=== PATIENT | male | born 1970 | race Caucasian/White ===

== ENCOUNTER 2016-11-19 07:44 | Observation (INO) | payer BC, OTHER ==
[2016-11-19] MEDS ORDERED: Clindamycin 900 MG IVPREMIX(* 900 MG/50 ML SDV IV ONE (08:46)
--- NOTE | 2016-11-19 09:08 | RAD ---
Indication: Chest pain. Previous myocardial infarction. Comparison: February 27, 2014 Technique: Upright AP 0850 hours Report: Clear lungs and pleural spaces. Negative for pneumothorax. RIGHT ventricular level pacemaker lead. Cardiomegaly. Unremarkable central pulmonary vasculature and mediastinal contours. IMPRESSION: Cardiomegaly without evidence for pulmonary edema. No evidence for acute intrathoracic disease.
[2016-11-19 09:27] LABS: Hematocrit 47 % (42-52); Hemoglobin 15.9 g/dl (14.0-18.0); Mean Corpuscular HGB Conc 34 g/dl (31-36); Mean Corpuscular Hemoglobin 29 pg (27-31); Mean Corpuscular Volume 86 fL (80-94); Mean Platelet Volume 8 um3 (7.4-10.4); Red Blood Count 5.48 10^6/ul (4.0-5.4); Red Cell Distribution Width 13 % (10.5-15); White Blood Count 9.8 10^3/ul (3.5-10.8)
--- NOTE | 2016-11-19 09:29 | RAD ---
HISTORY: Headache, facial erythema and swelling COMPARISONS: None TECHNIQUE: Multiple contiguous axial CT scans were obtained of the face without intravenous contrast, with coronal and sagittal multiplanar reformations. FINDINGS: BONES: There is no displaced fracture or dislocation. The orbital rim is intact. The zygomatic arch is intact. The pterygoid plates are intact. ORBITS: The globes are round. The optic nerves are symmetric. The extraocular musculature is normal. There is no post septal or intraconal inflammatory change. There is no retrobulbar hematoma. PARANASAL SINUSES: The paranasal sinuses are clear. BRAIN AND SOFT TISSUE: Unremarkable. OTHER: Tonsilloliths are noted. There is a 1 cm soft tissue density of the right parotid inferiorly, within the superficial portion of the parotid. IMPRESSION: 1 CM SOFT TISSUE DENSITY OF THE RIGHT PAROTID GLAND. THE DIFFERENTIAL INCLUDES PROMINENT INTRAPAROTID LYMPH NODE VERSUS PRIMARY PAROTID NEOPLASM. OTHERWISE UNREMARKABLE NONCONTRAST CT OF THE FACE
[2016-11-19 09:44] LABS: Albumin 4.3 g/dL (3.2-5.2); C Reactive Protein 1.18 mg/L (< 5.00); Calcium 9.7 mg/dL (8.6-10.3); EGFR Non-African American 80.1 (>60); Globulin 2.7 g/dL (2-4); Total Bilirubin 0.8 mg/dL (0.2-1.0)
[2016-11-19 09:53] LABS: TSH (Thyroid Stimulating Horm) 0.44 mcIU/mL (0.34-5.60)
--- NOTE | 2016-11-19 09:54 | RAD ---
Indication: Facial swelling. CT of the brain was performed without IV contrast. Ventricular structures are midline. No midline shift is noted. The extra-axial spaces are unremarkable. There is no evidence of intracranial mass or hemorrhage. No other high or low density lesions are identified. Mastoid air cells and paranasal sinuses are otherwise unremarkable. When compared to previous exam of October 16, 2013 no significant change is noted. IMPRESSION: No intracranial mass or hemorrhage is noted.
[2016-11-19 10:22] LABS: Urine Bilirubin Negative (Negative); Urine Glucose Negative (Negative); Urine Nitrite Negative (Negative)
[2016-11-19] MEDS ORDERED: Acetaminophen TAB* 325 MG PO PRN (13:23)
--- NOTE | 2016-11-19 16:23 | HP ---
HISTORY AND PHYSICAL: DATE OF ADMISSION: 11/19/16 PRIMARY CARE PROVIDER: Dr. Recinos. ATTENDING PHYSICIAN WHILE IN THE HOSPITAL: Dr. Yomi Gonzalez* (report dictated by Sebastian Crow NP). CHIEF COMPLAINT: 1. Nasal erythema. 2. Nasal pain. HISTORY OF PRESENT ILLNESS: Mr. Hope is a 46-year-old male patient. He has a history of coronary artery disease, hyperlipidemia, history of MT, prolonged QT, status post ICD placement, and a history of GERD. He comes into the ER originally for the complaint that he was having redness, erythema, swelling, pain of his nose. It started out a couple of days ago. He is unsure if he had any injury or abrasion. He does have an abrasion now to the nose and he has had increasing swelling, erythema, and pain. He says the erythema is getting better, but the swelling has been getting worse. He has not had any fevers or drainage from this area on his nasal bridge, but he was concerned because of the swelling and the fact that the pain was not getting any better and so, he came into the ER. The patient says he has also been having headache too at times. It has been hurting in the back of his eyes, but he denies having any pain with eye movement and he denies any erythema or redness to the eyes. He denies having any discharge; however, while talking to the patient, it was discovered that he has been having some chest discomfort off and on. He thinks it is gas pain. It gets worse when he lies down. He says that he has been belching a lot today. He had that discomfort today underneath his left side, his left rib cage. No associated shortness of breath or diaphoresis usually, but today he did have some shortness of breath. The pain did not radiate anywhere and it lasted a couple seconds and it went away. This was relayed to the ER physician and there was concern for this, so we were asked to evaluate for chest pain. He says he does not get any exertional chest pain and he says it happens throughout the day. The frequency or the duration has not been increasing and he says it has been the same ever since his heart attack for the last 3 years. PAST MEDICAL HISTORY: Significant for: 1. Coronary artery disease. 2. Hyperlipidemia. 3. GERD. 4. MT. 5. Prolonged QT. PAST SURGICAL HISTORY: 1. The patient has had a cardiac catheterization. 2. ICD placement. HOME MEDICATIONS: Include: 1. Magnesium 400 mg daily. 2. Plavix 75 mg daily. 3. Aspirin 81 mg daily. 4. Coreg 9.375 mg twice a day. 5. Lipitor 40 mg daily. 6. [place] fish oil 1200 mg daily. 7. Protonix 40 mg daily. 8. Coenzyme Q10 at 100 mg p.o. twice a day. ALLERGIES TO MEDICATIONS: Include no known drug allergies. FAMILY HISTORY: Mother is diabetic. Father has a history of coronary artery disease and rheumatoid arthritis. SOCIAL HISTORY: He is a former smoker. He does not drink alcohol; if he does, it is very rarely. He is . Surrogate decision maker is his . REVIEW OF SYSTEMS: There is no documented fever. Denied having any significant weight change. There was no double vision. There is no ear discharge. There is no rhinorrhea. There is no sore throat. No thyroid enlargement. There was chest discomfort per my HPI. No orthopnea. No nocturnal dyspnea. There is no abdominal pain. No nausea. No vomiting. No dysuria. No frequency. No loss of consciousness. No pruritus and no skin ulcerations. Review of 14 systems completed, all others negative. PHYSICAL EXAMINATION GENERAL: At this time, Mr. Hope is a 46-year-old male patient. He appears to be well nourished, well developed. He does not appear to be in any acute distress. VITAL SIGNS: Blood pressure 124/85 with a pulse of 66, respirations 18, O2 sat 97%, and temperature of 96.9. HEENT: Head atraumatic. Eyes: Sclerae are anicteric and not pale. Throat: Oral mucosa appears to be moist. No oropharyngeal erythema. NECK: Supple. LUNGS: Clear to auscultation bilaterally. No wheezes, rales, or rhonchi. HEART: Sounds S1, S2. Regular rate and rhythm. No murmurs, rubs, or gallops. ABDOMEN: Soft, flat, and nontender. Bowel sounds present. EXTREMITIES: Pulses 2+ throughout. Able to move all 4 extremities with 5/5 strength. NEUROLOGIC: The patient is awake, he is alert, and he is oriented x3. No gross focal deficits. SKIN: Intact with the exception he has got an area of erythema and swelling noted to the bridge of his nose. There is an abrasion on the top of the nose noted. No discharge was noted at this point. Otherwise, skin is intact. LABORATORY DATA AND DIAGNOSTIC STUDIES: Today revealed WBC of 9.8, RBC of 5.48 , hemoglobin 15.9, hematocrit of 47, platelet count of 225. INR was 0.86. PTT of 29.4. D-dimer less than 200. The sodium was 137, potassium of 4.0, chloride of 103, bicarb 28, BUN 13, creatinine of 1, glucose 104, lactic 1.8, calcium 9.7. Total bili 2.0, AST 28, ALT 17, alk phos 29, CK 145, CK-MB 2.5. Troponin 0. Albumin 4.3. Urine was obtained, it was negative. He had a chest x-ray obtained today as well, which revealed cardiomegaly without evidence for pulmonary edema. No evidence for acute intrathoracic disease. He had a maxillofacial CT scan today as well, which showed impression: 1-cm soft tissue density of the right parotid gland. Differential includes prominent intraparotid lymph node versus primary parotid neoplasm. Otherwise unremarkable noncontrast CT. He had a brain CT as well, which showed no intracranial mass or hemorrhage. He had an EKG obtained today as well, which showed heart rate 55. He had no ST elevations or T-wave inversions with sinus bradycardia. Old medical records were reviewed. ASSESSMENT AND PLAN: Mr. Hope is a 46-year-old male patient coming into the ER today with complaints of nasal swelling and nasal erythema. On evaluation, there was concern because the patient was complaining of having chest pain. Hospitalist service was asked to evaluate in consult. He will be admitted under observation status for: 1. Chest pain: At this point, we will go ahead and do a stress test and place the patient on telemetry. Check troponins. He is on aspirin, Plavix, statin, beta rachel. We will continue. He is chest pain free currently. We will get the stress test and we will continue to follow. Certainly, he could have acute coronary syndrome, which could be causing the chest discomfort, but it could also be gastroesophageal reflux disease as well. We will continue to follow. 2. Nasal cellulitis: At this point, I will go ahead and continue clindamycin, which was started in the ED. 3. Gastroesophageal reflux disease: Continue his PPI therapy. 4. Right parotid gland mass versus lymph node prominence: At this point, the patient will need followup with ENT. We will place a call to them to see if we can get this scheduled. I do not think there is nothing that needs to be done inpatient, this will probably be worked up in the outpatient setting. I did inform the patient and the patient's primary could also follow this. 5. Prolonged QT: We will avoid any medications that prolong his QT. 6. DVT prophylaxis: He will be placed on heparin subcu. 7. Code status: Full code. 8. Fluids, electrolytes, and nutrition: He can have a heart healthy diet. TIME SPENT: Time spent on the admission was 60 minutes; greater than half the time was spent [id number] with the patient obtaining my history and physical, other half the time spent going over the plan of care with the patient and implementing plan of care. I did discuss the plan of care with my attending, Dr. Gonzalez; he is in agreement. SEBASTIAN CROW NP CC: Dr. Recinos* [id number]/[facility] #: [id number] MELANIE
[2016-11-19] MEDS ORDERED: CMCS: Pantoprazole TAB (NF) 40 MG TAB PO SCH (17:00)
[2016-11-19] MEDS: Heparin VIAL(*) 5000 UNITS/ML VIAL (FIVE THOUSAND) SUBCUT SCH ×2 (17:10→21:50)
[2016-11-19] MEDS: Clindamycin 600 MG IVPREMIX(* 600 MG/50 ML SDV IV SCH (19:56)
[2016-11-19] MEDS: Carvedilol TAB* 3.125 MG PO SCH (20:12)
[2016-11-19] MEDS ORDERED: Atorvastatin* 40 MG TAB PO SCH (21:00)
[2016-11-20] MEDS: Clindamycin 600 MG IVPREMIX(* 600 MG/50 ML SDV IV SCH ×2 (03:40→13:10)
[2016-11-20 05:40] LABS: Hematocrit 46 % (42-52); Hemoglobin 15.6 g/dl (14.0-18.0); Mean Corpuscular HGB Conc 34 g/dl (31-36); Mean Corpuscular Hemoglobin 29 pg (27-31); Mean Corpuscular Volume 87 fL (80-94); Mean Platelet Volume 8 um3 (7.4-10.4); Red Blood Count 5.35 10^6/ul (4.0-5.4); Red Cell Distribution Width 14 % (10.5-15); White Blood Count 8.8 10^3/ul (3.5-10.8)
[2016-11-20 05:58] LABS: BUN/Creatinine Ratio 16.7 (8-20); Calcium 9.3 mg/dL (8.6-10.3); EGFR African American 100.7 (>60); EGFR Non-African American 78.3 (>60)
[2016-11-20] MEDS: Heparin VIAL(*) 5000 UNITS/ML VIAL (FIVE THOUSAND) SUBCUT SCH ×2 (06:29→13:48)
[2016-11-20] MEDS ORDERED: Aspirin EC Low Dose* 81 MG TAB.EC PO SCH (09:00)
[2016-11-20] MEDS ORDERED: Magnesium Oxide TAB* 400 MG PO SCH (09:00)
[2016-11-20] MEDS ORDERED: Clopidogrel TAB* 75 MG PO SCH (09:00)
[2016-11-20] MEDS ORDERED: Aspirin Low Dose CHEW TAB* 81 MG PO SCH ×2 (09:00)
--- NOTE | 2016-11-20 09:39 | PN ---
Subjective Date of Service: 11/20/16 Interval History: Patient seen and examined at bedside. Pt states that the swelling to his nose has increased overnight, but the redness has decreased. Denies fever, chills, shortness of breath, chest discomfort, N/V/D, difficulty breathing through his nose. Pt is anxious to leave today. Pt states that he has been having intermittent chest discomfort since his PR 3 years ago, he finds that it typically occurs when he is stressed. Pt reports that the redness on his nose started as a scratch a few days ago and has continued to progress. Tele: Sinus rhythm, rate 60-70's. Occasional PVCs and richard in high 40's. Family History: Unchanged from Admission Social History: Unchanged from Admission Past Medical History: Unchanged from Admission Objective Active Medications: Acetaminophen (Tylenol Tab*) 650 mg PO Q4H PRN Reason: FEVER/PAIN Aspirin (Aspirin Low Dose Tab*) 81 mg PO DAILY JENY Atorvastatin Calcium (Lipitor*) 40 mg PO BEDTIME JENY Carvedilol (Coreg Tab*) 9.375 mg PO BID JENY Clopidogrel Bisulfate (Plavix Tab*) 75 mg PO DAILY JENY Heparin Sodium (Porcine) (Heparin Vial(*)) 5,000 units SUBCUT Q8HR JENY Clindamycin HCl/Dextrose (Cleocin 600 Mg Ivpremix(*) Sdv) 600 mg in 50 mls @ 100 mls/hr IV Q8H JENY Magnesium Oxide (Magox 400 Tab*) 400 mg PO DAILY EJNY Pantoprazole Sodium (Protonix Tab (Nf)) 40 mg PO DAILY@1700 [facility] Vital Signs 11/19/16 11/19/16 11/19/16 12:43 13:00 13:48 Temperature Pulse Rate 72 65 63 Respiratory 14 11 11 Rate Blood Pressure 138/90 124/85 128/89 (mmHg) O2 Sat by Pulse 96 97 96 Oximetry 11/19/16 11/19/16 11/19/16 14:00 14:33 14:53 Temperature 97.7 F 97.7 F Pulse Rate 63 81 81 Respiratory 15 18 18 Rate Blood Pressure 127/83 152/96 152/96 (mmHg) O2 Sat by Pulse 95 95 95 Oximetry 11/19/16 11/19/16 11/19/16 15:58 17:22 19:51 Temperature 97.4 F 98.6 F Pulse Rate 67 71 Respiratory 14 Rate Blood Pressure 133/81 130/86 (mmHg) O2 Sat by Pulse 98 97 Oximetry 11/20/16 11/20/16 11/20/16 00:29 04:38 07:57 Temperature 97.3 F 97.7 F 98.0 F Pulse Rate 65 65 60 Respiratory 16 16 16 Rate Blood Pressure 101/70 110/74 131/85 (mmHg) O2 Sat by Pulse 96 95 96 Oximetry Oxygen Devices in Use Now: None Eyes: No Scleral Icterus, PERRLA Ears/Nose/Mouth/Throat: - - Erythema and swelling to the bridge of the nose Neck: NL Appearance and Movements; NL JVP, Trachea Midline Respiratory: Symmetrical Chest Expansion and Respiratory Effort, Clear to Auscultation Cardiovascular: NL Sounds; No Murmurs; No JVD, RRR Abdominal: NL Sounds; No Tenderness; No Distention Extremities: No Edema Skin: - Neurological: Alert and Oriented x 3, NL Muscle Strength and Tone Lines/Tubes/Other Access: Clean, Dry and Intact Peripheral IV - site benign Nutrition: Taking PO's Result Diagrams: 11/20/16 05:20 11/20/16 05:20 Assess/Plan/Problems-Billing Assessment: Mr. Hope is a 46 yo male with PMH significant for CAD, HLD, HTN who presented to the emergency room with complaints of nasal swelling and erythema, and intermittent chest pain. He was admitted with nasal cellulitis and chest pain, r/o ACS. - Patient Problems (1) Chest pain Code(s): R07.9 - CHEST PAIN, UNSPECIFIED SNOMED Code(s): 98052620 Comment: - Denies chest pain since admission - No events noted on Tele - Stress test pending - Trops 0.00 x3 (2) Cellulitis of external nose Code(s): J34.0 - ABSCESS, FURUNCLE AND CARBUNCLE OF NOSE SNOMED Code(s): 06410078 Comment: - Pt reports improvement in erythma, but increased swelling - Continue ABX, will change to PO for discharge (3) GERD (gastroesophageal reflux disease) Code(s): K21.9 - GASTRO-ESOPHAGEAL REFLUX DISEASE WITHOUT ESOPHAGITIS SNOMED Code(s): 674621324 Comment: - Continue PPI (4) Enlarged parotid gland Code(s): K11.1 - HYPERTROPHY OF SALIVARY GLAND SNOMED Code(s): 63381127 Comment: - Right parotid gland mass versus lymph node prominence - Follow-up with ENT outpatient for a possible FNA (5) Prolonged QT interval Code(s): R94.31 - ABNORMAL ELECTROCARDIOGRAM [ECG] [EKG] SNOMED Code(s): 361880134 Comment: - Avoid medications that prolong QT (6) Elevated hemoglobin A1c Code(s): R73.09 - OTHER ABNORMAL GLUCOSE SNOMED Code(s): 578164517 Comment: - Pt encouraged to monitor sugar and carb intake - Follow-up with PCP (7) DVT prophylaxis Code(s): FFK1886 - SNOMED Code(s): 332327418 Comment: - Continue SQ heparin (8) Full code status Code(s): Z78.9 - OTHER SPECIFIED HEALTH STATUS SNOMED Code(s): 417152160 Status and Disposition: OBV. Discharge to home when medically stable, possibly later today.
[2016-11-20 12:45] VITALS: BP 124/84
[2016-11-20] MEDS: Carvedilol TAB* 3.125 MG PO SCH (12:47)
--- NOTE | 2016-11-20 12:48 | RAD ---
Edited for charges. Indication: Coronary artery disease, chest pain. Myocardial perfusion scan was performed utilizing 1 day protocol. Rest myocardial perfusion was performed after intravenous injection of 10.5 mCi of technetium 99 and tetrofosmin. Treadmill stress study was performed and the maximum heart rate achieved was 86% of the maximum predicted value. 25.7 mCi of technetium 99 and tetrofosmin was injected for the stress portion of the study. There is a fixed defect in the apex. No definite evidence of reversible change is noted surrounding the fixed defect. The ejection fraction at stress is 58%. Evaluation of wall motion demonstrates no evidence of focal wall motion. IMPRESSION: Moderate-sized fixed defect in the apex. No definite reversible change is noted. ASSESSMENT: Intermediate risk Based on imaging criteria from ACC/AHA 2002 Guideline Update for the Management of Patients With Chronic Stable Angina Table 23. Noninvasive Risk Stratification. MTDD
--- NOTE | 2016-11-21 12:23 | DS ---
DISCHARGE SUMMARY: DATE OF ADMISSION: 11/19/16 DATE OF DISCHARGE: 11/20/16 ATTENDING PHYSICIAN: Bre Castaneda MD *(dictated by Anna Crooks NP). PRIMARY CARE PROVIDER: Mau Recinos MD. PRIMARY DIAGNOSES: 1. Nasal cellulitis. 2. Atypical chest pain. 3. Right parotid gland mass, first lymph node prominence. SECONDARY DIAGNOSES: 1. History of coronary artery disease. 2. Prolonged QT. 3. Gastroesophageal reflux disease. 4. Hyperlipidemia. 5. Status post ventricular fibrillation arrest with status post ICD placement. STUDIES WHILE IN THE HOSPITAL: 1. Brain CT on 11/19/16. Radiologist's impression: No intracranial mass or hemorrhages noted. 2. Maxillofacial CT from 11/19/16. Radiologist's impression: A 1 cm soft tissue density of the right parotid gland. The differential includes prominent intraparotid lymph node versus primary parotid neoplasm. Otherwise, unremarkable non-contrast CT of the face. 3. Chest x-ray on 11/19/16. Radiologist's impression: Cardiomegaly without evidence for pulmonary edema. No evidence for acute intrathoracic disease. 4. Cardiac nuclear stress test from today. Stand In's observation, chest pain none. Resting ECG, abnormal ST changes none. Hypertensive BP response. Conclusion: Nondiagnostic near maximal stress test. Nuclear portion to be reported separately by Radiology. Radiologist's impression: Moderate size fixed defect in the apex. No definitive reversible change is noted. Assessment : Intermediate risk. DISCHARGE MEDICATIONS: New home medication: 1. Keflex 500 mg oral 4 times daily for 6 more days. Continued home medications: 1. Plavix 75 mg oral daily. 2. Carvedilol 9.375 mg oral twice daily. 3. Magnesium 400 mg oral daily. 4. Fish oil 1200 mg oral daily. 5. Co-Q10 at 100 mg oral twice daily. 6. Protonix 40 mg oral daily. 7. Aspirin 81 mg oral daily. 8. Atorvastatin 40 mg oral every evening. HISTORY OF PRESENT ILLNESS/HOSPITAL COURSE: Mr. Hope is a 46-year-old male with past medical history significant for coronary artery disease, status post myocardial infarction, hyperlipidemia, GERD, prolonged QT, who presents to the emergency room with complaints of nasal swelling and nasal erythema. The patient reports that he started with a scratch-like area on the bridge of his nose that then progressed to increased swelling and redness. The patient denied any injury to the nose. The patient denies any fever or drainage from the area on his nose. The patient was also having headaches and some pain in the back of his eyes, but denied pain with movement of his eyes or redness involving his eyes. The patient also reported intermittent chest discomfort for quite sometime in the emergency room. The patient reported that he felt that it was gas pain, it was worse when he lied down and he had been belching a lot. The patient reported discomfort under the left side of his ribcage. He had no associated shortness of breath or diaphoresis, but did report having shortness of breath earlier in the day. While in the emergency room, the patient had a chest x-ray showing no acute findings. He also had a maxillofacial CT scan showing a 1 cm soft tissue density of the right parotid gland. The patient had labs that were significant for troponin of 0.00, hemoglobin of 7.2, a brain CT showing no acute findings. The patient also had an EKG showing sinus bradycardia with a rate of 55. No ST elevation or T-wave inversions. Based on the patient's presentation and complaints of chest discomfort, the hospitalists were asked to evaluate the patient for possible admission. While in the hospital, the patient was initially treated with IV clindamycin for his nasal cellulitis. The patient underwent a nuclear exercise stress test that was an intermediate risk. Cardiology on-call felt that this was a small area of fixed ischemia and felt that the patient was able to be discharged to home. The patient has remained afebrile. The patient was anxious to go home. It is to note that the patient was found to have an elevated hemoglobin A1c of 7.2. The patient was encouraged to have an appointment with [facility] regarding treatment of his diabetes, the patient declined. The patient was not interested in starting on any medications for his elevated hemoglobin A1c. The patient was encouraged to make a self-referral and given the phone number for [facility] if he changed his mind and would like a referral. The patient's troponins remained flat at 0.00. The patient's LDL was slightly elevated at 73. The patient declined having his statin increased at this time. The patient also has borderline elevated triglycerides of 178. Over the course of the day, the patient's erythema and swelling started to improve to his nasal bridge. The patient remained chest pain free and had no events noted on telemetry. Mr. Hope is stable for discharge to home today. Vital signs are as follows: Temperature 97.8, heart rate 71, respiratory rate 16, O2 sat 99% on room air, blood pressure 124/84. DISCHARGE PLAN: Mr. Hope will be discharged to home. ACTIVITY: As tolerated. DIET: He has been encouraged to eat a heart healthy consistent carbohydrate diet. The patient has been provided with some information about meal planning with diabetic exchanges. The patient had been encouraged to have an appointment with [facility] for [employer] [facility] and he has declined. As far as the patient's nasal cellulitis, he has been discharged with 6-day course of Keflex. The patient was also incidentally found to have a right parotid gland with increased density. The patient has been set up with a followup appointment with Dr. Aidan Purdy on November 22 at 9:30 a.m. The patient should see his primary care provider, Dr. Mau Recinos, and he has an appointment on November 22 at 1:20 p.m. 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 Alin Braga, as needed. Again it has been discussed with the patient about his elevated hemoglobin A1c, elevated triglycerides and LDL. At this time, the patient declines any changes in his medications and I would like to discuss this all with his primary care provider, Dr. Recinos. The patient has been asked to return to the emergency room for any chest pain or shortness of breath or worsening of the swelling of his nasal bridge. This is a summarized report of a complex medical history and hospital stay. For further details, please see the entire medical record. TIME SPENT: Time for this discharge was 50 minutes, 25 minutes was spent face- to- face with the patient and discussing discharge plans and instructions. CONDITION ON DISCHARGE: Stable. Reviewed by DUGLAS JEFFERS 11/21/16 [id number] CC: Alin Braga MD; Aidan Purdy MD; Mau Recinos MD* [id number]/[facility] #: [id number] MTDD
--- NOTE | 2016-11-29 12:16 | ED ---
Mauro Alford Alok, scribed for Gene Altamirano MD on 11/19/16 at 0850 . Skin Complaint - HPI Summary HPI Summary: 46 y/o male presents to the ED with c/o facial swelling and erythema concentrated on the bridge of his nose. Facial swelling which began as a small bump 4 days ago has worsened significantly since, prompting visit to the ED. 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 Since onset, Pt has taken Benadryl which alleviated some blistering of the facial bump but did not lessen the swelling. Accompanying symptoms include a BLUNT for the past 3-4 days as well as dizziness, eye/neck pressure, and fatigue. Pt also notes sharp CP on and off for the past 3 days, but is similar to baseline since last cardiac surgery. Pt also notes having experienced ear pain about 2 or 3 weeks ago. Pt denies any fever, chills, or tenderness to palpation around his face. Pt provides a list of drug allergies brought with him. Clindamycin is not on this list. - History of Current Complaint Chief Complaint: EDFacialInjury Time Seen by Provider: 11/19/16 08:20 Stated Complaint: NOSE COMPLAINT Hx Obtained From: Patient, Family/Regulatory Consultant - Onset/Duration: Started Days Ago, Atraumatic, Still Present Skin Exposure Onset/Duration: Days Ago, Worse Since: - 4 days ago Timing: Constant, Lasting Days Onset Severity: Moderate Current Severity: Moderate Pain Intensity: 2 Pain Scale Used: 0-10 Numeric Skin Location: Discrete, Nose - Bridge of nose Character: Swelling, Redness Aggravating Symptom(s): Nothing Alleviating Symptom(s): OTC Meds - Benadryl Associated Signs & Symptoms: Chest Pain, Rash Related History: Possible Reaction to: Environmental Exposure - 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 - Allergy/Home Medications Allergies/Adverse Reactions: Allergies Allergy/AdvReac Type Severity Reaction Status Date / Time No Known Allergies Allergy Verified 10/12/13 17:20 PMH/Surg Hx/FS Hx/Imm Hx Cardiovascular History: Reports: Hx Coronary Artery Disease, Hx Pacemaker/ICD GI History: Reports: Hx Gastroesophageal Reflux Disease Infectious Disease History: No Infectious Disease History: Denies: Traveled Outside the [place] in Last 30 Days - Family History Known Family History: Positive: Cardiac Disease - Father, Diabetes - Mother - Social History Occupation: Employed Full-time Lives: With Family - Alcohol Use: Rare Substance Use Type: Reports: Marijuana Substance Use Comment - Amount & Last Used: 11/19/2016 Smoking Status (MU): Former Smoker Type: Cigarettes Have You Smoked in the Last Year: Yes Review of Systems Negative: Fever, Chills Positive: Ear Ache Positive: Chest Pain Positive: Rash Neurological: Other - Dizziness, Fatigue Positive: Headache All Other Systems Reviewed And Are Negative: Yes Physical Exam - Summary Physical Exam Summary: Appearance: Mildly ill-appearing, no pain distress Skin: Erythema bridge of nose. Edema bridge of nose. Edema below right eye. Head/Face: Normal head/face Eyes: EOMI, PERRL ENT: Normal ENT inspection. Ears normal Neck: Supple, nontender Resp: CTA, breath sounds present Cardio: RRR Abd: Nontender, Soft Bowel: Present Musculo: Normal, Strength, ROM intact Neuro: Normal, sensory/motor intact AxO x3 Psych: Affect/ mood appropriate Triage Information Reviewed: Yes Vital Signs On Initial Exam: Initial Vitals Temp Pulse Resp BP Pulse Ox 96.9 F 73 20 134/101 96 11/19/16 07:45 11/19/16 07:45 11/19/16 07:45 11/19/16 07:45 11/19/16 07:45 Vital Signs Reviewed: Yes - Henny Coma Scale Coma Scale Total: 15 Diagnostics - Vital Signs Vital Signs Temp Pulse Resp BP Pulse Ox 11/19/16 08:22 60 97 11/19/16 07:45 96.9 F 73 20 134/101 96 - Laboratory Lab Results: Lab Results 11/19/16 11/19/16 11/19/16 Range/Units 09:00 09:00 09:00 WBC 9.8 (3.5-10.8) 10^3/ul RBC 5.48 H (4.0-5.4) 10^6/ul Hgb 15.9 (14.0-18.0) g/dl Hct 47 (42-52) % MCV 86 (80-94) fL MCH 29 (27-31) pg MCHC 34 (31-36) g/dl RDW 13 (10.5-15) % Plt Count 225 (150-450) 10^3/ul MPV 8 (7.4-10.4) um3 Neut % (Auto) 54.5 (38-83) % Lymph % (Auto) 33.1 (25-47) % Lagrange % (Auto) 9.5 H (1-9) % Eos % (Auto) 2.4 (0-6) % Baso % (Auto) 0.5 (0-2) % Absolute Neuts (auto) 5.4 (1.5-7.7) 10^3/ul Absolute Lymphs (auto) 3.2 (1.0-4.8) 10^3/ul Absolute Monos (auto) 0.9 H (0-0.8) 10^3/ul Absolute Eos (auto) 0.2 (0-0.6) 10^3/ul Absolute Basos (auto) 0 (0-0.2) 10^3/ul Absolute Nucleated RBC 0.01 10^3/ul Nucleated RBC % 0.1 INR (Anticoag Therapy) 0.86 L (0.89-1.11) APTT 29.4 (26.0-36.3) seconds D-Dimer, Quantitative < 200 (Less Than 230) ng/mL Sodium 137 (133-145) mmol/L Potassium 4.0 (3.5-5.0) mmol/L Chloride 103 (101-111) mmol/L Carbon Dioxide 28 (22-32) mmol/L Anion Gap 6 (2-11) mmol/L BUN 13 (6-24) mg/dL Creatinine 1.00 (0.67-1.17) mg/dL Est GFR ( Amer) 103.0 (>60) Est GFR (Non-Af Amer) 80.1 (>60) BUN/Creatinine Ratio 13.0 (8-20) Glucose 104 H (70-100) mg/dL Lactic Acid (0.5-2.0) mmol/L Calcium 9.7 (8.6-10.3) mg/dL Magnesium 2.0 (1.9-2.7) mg/dL Total Bilirubin 0.80 (0.2-1.0) mg/dL AST 17 (13-39) U/L ALT 29 (7-52) U/L Alkaline Phosphatase 72 (34-104) U/L Total Creatine Kinase 145 (10-223) U/L CK-MB (CK-2) 2.5 (0.6-6.3) ng/mL Troponin I 0.00 (<0.04) ng/mL C-Reactive Protein 1.18 (< 5.00) mg/L B-Natriuretic Peptide ( - 100) pg/mL Total Protein 7.0 (6.4-8.9) g/dL Albumin 4.3 (3.2-5.2) g/dL Globulin 2.7 (2-4) g/dL Albumin/Globulin Ratio 1.6 (1-3) Lipase 14 (11.0-82.0) U/L TSH 0.44 (0.34-5.60) mcIU/mL Urine Color Urine Appearance Urine pH (5-9) Ur Specific Corbett (1.010-1.030) Urine Protein (Negative) Urine Ketones (Negative) Urine Blood (Negative) Urine Nitrate (Negative) Urine Bilirubin (Negative) Urine Urobilinogen (Negative) Ur Leukocyte Esterase (Negative) Urine Glucose (Negative) 11/19/16 11/19/16 11/19/16 Range/Units 09:00 09:00 10:10 WBC (3.5-10.8) 10^3/ul RBC (4.0-5.4) 10^6/ul Hgb (14.0-18.0) g/dl Hct (42-52) % MCV (80-94) fL MCH (27-31) pg MCHC (31-36) g/dl RDW (10.5-15) % Plt Count (150-450) 10^3/ul MPV (7.4-10.4) um3 Neut % (Auto) (38-83) % Lymph % (Auto) (25-47) % Lagrange % (Auto) (1-9) % Eos % (Auto) (0-6) % Baso % (Auto) (0-2) % Absolute Neuts (auto) (1.5-7.7) 10^3/ul Absolute Lymphs (auto) (1.0-4.8) 10^3/ul Absolute Monos (auto) (0-0.8) 10^3/ul Absolute Eos (auto) (0-0.6) 10^3/ul Absolute Basos (auto) (0-0.2) 10^3/ul Absolute Nucleated RBC 10^3/ul Nucleated RBC % INR (Anticoag Therapy) (0.89-1.11) APTT (26.0-36.3) seconds D-Dimer, Quantitative (Less Than 230) ng/mL Sodium (133-145) mmol/L Potassium (3.5-5.0) mmol/L Chloride (101-111) mmol/L Carbon Dioxide (22-32) mmol/L Anion Gap (2-11) mmol/L BUN (6-24) mg/dL Creatinine (0.67-1.17) mg/dL Est GFR ( Amer) (>60) Est GFR (Non-Af Amer) (>60) BUN/Creatinine Ratio (8-20) Glucose (70-100) mg/dL Lactic Acid 1.8 (0.5-2.0) mmol/L Calcium (8.6-10.3) mg/dL Magnesium (1.9-2.7) mg/dL Total Bilirubin (0.2-1.0) mg/dL AST (13-39) U/L ALT (7-52) U/L Alkaline Phosphatase (34-104) U/L Total Creatine Kinase (10-223) U/L CK-MB (CK-2) (0.6-6.3) ng/mL Troponin I (<0.04) ng/mL C-Reactive Protein (< 5.00) mg/L B-Natriuretic Peptide 30 ( - 100) pg/mL Total Protein (6.4-8.9) g/dL Albumin (3.2-5.2) g/dL Globulin (2-4) g/dL Albumin/Globulin Ratio (1-3) Lipase (11.0-82.0) U/L TSH (0.34-5.60) mcIU/mL Urine Color Straw Urine Appearance Clear Urine pH 7.0 (5-9) Ur Specific Corbett 1.008 L (1.010-1.030) Urine Protein Negative (Negative) Urine Ketones Negative (Negative) Urine Blood Negative (Negative) Urine Nitrate Negative (Negative) Urine Bilirubin Negative (Negative) Urine Urobilinogen Negative (Negative) Ur Leukocyte Esterase Negative (Negative) Urine Glucose Negative (Negative) Result Diagrams: 11/20/16 05:20 11/20/16 05:20 Lab Statement: Any lab studies that have been ordered have been reviewed, and results considered in the medical decision making process. - Radiology CXR Xray Interpretation: Positive (See Comments) - IMPRESSION: Cardiomegaly without evidence for pulmonary edema. No evidence for acute intrathoracic disease. Radiology Interpretation Completed By: Radiologist - CT Maxillofacial CT CT Interpretation: Positive (See Comments) - IMPRESSION: 1 CM SOFT TISSUE DENSITY OF THE RIGHT PAROTID GLAND. THE DIFFERENTIAL INCLUDES PROMINENT INTRAPAROTID LYMPH NODE VERSUS PRIMARY PAROTID NEOPLASM. OTHERWISE UNREMARKABLE NONCONTRAST CT OF THE FACE CT Interpretation Completed By: Radiologist Brain CT CT Interpretation: Positive (See Comments) - IMPRESSION: No intracranial mass or hemorrhage is noted. CT Interpretation Completed By: Radiologist - EKG [id number] Cardiac Rate: Bradycardia EKG Rhythm: Sinus Bradycardia - [address] Segment: Normal Re-Evaluation - Re-Evaluation First Eval Re-Evaluation Time: 12:05 Course/Dx - Diagnoses Provider Diagnoses: chest pain - Physician Notifications Discussed Care Of Patient With: Hospitalist @ 1224 Discharge - Discharge Plan Condition: Stable Disposition: ADMITTED TO [facility] documentation as recorded by the Mauro pinzon Alok accurately reflects the service I personally performed and the decisions made by , Gene Altamirano MD.
== END 2016-11-20 14:55 | disposition home or self-care (01) ==
LOC: ED 07:44 → MEDTELE 12:30
PROVIDERS: ADMIT Internal Medicine; ATTEND Internal Medicine
DX: R07.89 Other chest pain (principal); J34.0 Abscess, furuncle and carbuncle of nose; K11.1 Hypertrophy of salivary gland; R73.09 Other abnormal glucose; R00.1 Bradycardia, unspecified; I25.10 Atherosclerotic heart disease of native coronary artery without angina pectoris; K21.9 Gastro-esophageal reflux disease without esophagitis; E78.5 Hyperlipidemia, unspecified; R06.02 Shortness of breath; I45.81 Long QT syndrome; Z79.02 Long term (current) use of antithrombotics/antiplatelets; Z79.899 Other long term (current) drug therapy; Z79.82 Long term (current) use of aspirin; I25.2 Old myocardial infarction; Z87.891 Personal history of nicotine dependence
CPT/HCPCS: 36415; 70450; 70486; 71010; 78452; 80048; 80053; 80061; 81003; 82550; 82553; 83036; 83605; 83690; 83735; 83880; 84443; 84484; 85025; 85379; 85610; 85730; 86140; 87040; 93005; 93017; 94760; 96365; 96375; 96376; 99284; A9270-GY; A9502; G0378; J1644

== ENCOUNTER 2017-04-29 11:23 | Emergency (ER) | payer BC, OTHER ==
[2017-04-29] MEDS ORDERED: Tetan/Diph/Pertus SYR(Tdap)* 0.5 ML SYR(BOOSTRIX) use SYR IM ONE (12:10)
[2017-04-29 12:31] VITALS: BP 141/88
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
== END 2017-04-29 12:35 | disposition home or self-care (01) ==
LOC: UCEAST 11:23
DX: S61.032A Puncture wound without foreign body of left thumb without damage to nail, initial encounter (principal); W29.4XXA Contact with nail gun, initial encounter; Y93.9 Activity, unspecified; Y92.9 Unspecified place or not applicable; Z23 Encounter for immunization; Z95.810 Presence of automatic (implantable) cardiac defibrillator; Z95.5 Presence of coronary angioplasty implant and graft; F12.90 Cannabis use, unspecified, uncomplicated; Z87.891 Personal history of nicotine dependence
CPT/HCPCS: 90471; 90715; 99211; G0463

== ENCOUNTER 2018-12-12 16:50 | Emergency (ER) | payer BC ==
[2018-12-12 18:05] VITALS: BP 139/89
[2018-12-12 18:53] LABS: Influenza A Molecular POSITIVE (Negative)
--- NOTE | 2018-12-12 19:15 | UC ---
UC General HPI - HPI Summary HPI Summary: last pm, sudden headache, sinus congestion, cough, chest congestion and fever with chills. + sob and some wheezing. no cp or asthma. hx AR. took tylenol 3:30pm, 650mg. 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 Timing: Constant Pain Intensity: 8 Associated Signs & Symptoms: Positive: Cough, Fever, Headache, SOB, Wheezing - Allergy/Home Medications Allergies/Adverse Reactions: Allergies Allergy/AdvReac Type Severity Reaction Status Date / Time Meds that effect the QT Allergy Unknown Uncoded 12/04/16 08:47 Interval Reaction Details Home Medications: Home Medications Acetaminophen [Tylenol] 4 tab PO ONCE 12/12/18 [History Confirmed 12/12/18] Ezetimibe [Zetia] 10 mg PO BEDTIME 12/12/18 [History Confirmed 12/12/18] PMH/Surg Hx/FS Hx/Imm Hx - Additional Past Medical History Additional PMH: DVT, umbilical hernia. Cardiovascular History: Hypertension, Pacemaker/ICD, Myocardial Infarction, Other - prolong qt GI/ History: Gastroesophageal Reflux - Surgical History Surgical History: Yes Surgery Procedure, Year, and Place: LAD STENT 09/28. Defibrillator - Family History Known Family History: Positive: Non-Contributory Negative: Blood Disorder - Social History Occupation: Employed Full-time Lives: With Family Alcohol Use: Occasionally Substance Use Type: Marijuana Substance Use Comment - Amount & Last Used: daily Smoking Status (MU): Former Smoker Type: Cigarettes Have You Smoked in the Last Year: Yes Household Exposure Type: Cigarettes - Immunization History Most Recent Influenza Vaccination: never Most Recent Tetanus Shot: within 10 years Most Recent Pneumonia Vaccination: None Review of Systems All Other Systems Reviewed And Are Negative: Yes Constitutional: Positive: Fever, Chills ENT: Positive: Sinus Congestion Respiratory: Positive: Shortness Of Breath, Cough Musculoskeletal: Positive: Myalgia Neurological: Positive: Headache Physical Exam Triage Information Reviewed: Yes Appearance: Ill-Appearing - but non toxic Vital Signs: Initial Vital Signs Temp 99.4 F 12/12/18 18:00 Pulse 90 12/12/18 18:00 Resp 18 12/12/18 18:00 BP 139/89 12/12/18 18:00 Pulse Ox 98 12/12/18 18:00 Vital Signs Reviewed: Yes Eyes: Positive: Conjunctiva Clear ENT: Positive: Pharynx normal, Nasal congestion, Nasal drainage - clear, TMs normal Neck: Positive: Supple, Nontender, No Lymphadenopathy Respiratory: Positive: Lungs clear, No accessory muscle use, Decreased breath sounds, Other: - congested cough Cardiovascular: Positive: RRR, No Murmur Abdomen Description: Positive: Nontender, No Organomegaly, Soft, Other: - umbilical hernia c/w pmh Bowel Sounds: Positive: Present Musculoskeletal: Positive: ROM Intact Neurological: Positive: Alert Psychological: Positive: Normal Response To Family, Age Appropriate Behavior Skin Exam: Normal Diagnostics - Radiology No standard instances Radiology Interpretation Completed By: ED Physician - wet read=nad, Radiologist Re-Evaluation - Re-Evaluation First Eval Re-Evaluation Time: 19:49 Change: Improved - better aeration. pt notes less cough and easier to take a deep breath. Course/Dx - Course Course Of Treatment: rapid flu=A+ - Differential Dx - Multi-Symptom Differential Diagnoses: Other - + for influenza A. cxr wet read=nad. non toxic and not hypoxic. cardiac hx and agrees to take Tamiflu, risk/benefits d/w pt. - Diagnoses Provider Diagnosis: Influenza A Discharge - Sign-Out/Discharge Documenting (check all that apply): Patient Departure All imaging exams completed and their final reports reviewed: No - Discharge Plan Condition: Stable Disposition: HOME Prescriptions: Oseltamivir CAP* [Tamiflu CAP*] 75 mg PO BID 5 Days #10 cap Patient Education Materials: Influenza (DC) Forms: *Work Release Referrals: Mau Recinos MD [Primary Care Provider] - Additional Instructions: FOLLOW UP WITH PRIMARY CARE IN 5-7 DAYS FOR A RECHECK OR SOONER IF WORSE. - Billing Disposition and Condition Condition: STABLE Disposition: Home
[2018-12-12] MEDS ORDERED: Acetaminophen TAB* 325 MG PO ONE (19:22)
[2018-12-12] MEDS ORDERED: Oseltamivir CAP* 75 MG CAP PO ONE (19:22)
[2018-12-12] MEDS ORDERED: Albuterol 2.5 MG/3 ML NEB.SOL* (0.083%) INH ONE (19:22)
[2018-12-12] MEDS ORDERED: Albuterol HFA INHALER* 8 gm MDI INH ONE (19:54)
--- NOTE | 2018-12-13 20:49 | UC ---
- Progress Note Progress Note: Radiologist's final reading for chest x-ray from December 12, 2018 comes back with no acute disease process. Provider's interpretation from same date is the same therefore there is no discrepancy. Course/Dx - Diagnoses Provider Diagnoses: Influenza A Discharge - Sign-Out/Discharge Documenting (check all that apply): Patient Departure All imaging exams completed and their final reports reviewed: Yes - Discharge Plan Condition: Stable Disposition: HOME Prescriptions: Oseltamivir CAP* [Tamiflu CAP*] 75 mg PO BID 5 Days #10 cap Patient Education Materials: Influenza (DC) Forms: *Work Release Referrals: Mau Recinos MD [Primary Care Provider] - Additional Instructions: FOLLOW UP WITH PRIMARY CARE IN 5-7 DAYS FOR A RECHECK OR SOONER IF WORSE. - Billing Disposition and Condition Condition: STABLE Disposition: Home
== END 2018-12-12 20:12 | disposition home or self-care (01) ==
LOC: UCCORT 16:50
DX: J10.1 Influenza due to other identified influenza virus with other respiratory manifestations (principal); I10 Essential (primary) hypertension; I25.2 Old myocardial infarction; Z88.9 Allergy status to unspecified drugs, medicaments and biological substances; Z87.891 Personal history of nicotine dependence
CPT/HCPCS: 71046; 99213; A9270-GY; G0463

== ENCOUNTER 2019-02-03 05:32 | Day surgery (SDC) | payer BC ==
[~2019-02-03 05:32] MED LIST: Buffered Lidocaine 1% SYRIN* 1 ML/SYRINGE INTRADERM ONE
[2019-02-03] MEDS ORDERED: Dexamethasone IV* 4 MG/ML 1 ML (4 MG) ONE (05:59)
[2019-02-03] MEDS ORDERED: Buffered Lidocaine 1% SYRIN* 1 ML/SYRINGE INTRADERM ONE (05:59)
[2019-02-03] MEDS ORDERED: Famotidine IV* 10 MG/ML 2 ML (20 mg) ONE (05:59)
[2019-02-03] MEDS ORDERED: Lactated Ringers 1000 ML Bag* 1,000 ML IV SCH (06:00)
[2019-02-03] MEDS ORDERED: Famotidine IV* 10 MG/ML 2 ML (20 mg) IV ONE (06:00)
[2019-02-03] MEDS ORDERED: Dexamethasone IV* 4 MG/ML 1 ML (4 MG) IV SLOW PU ONE (06:00)
[2019-02-03] MEDS ORDERED: ceFAZolin 2 GM PREMIX in ORs 2 GM/50 ML BAG IVPB ONE (06:21)
[2019-02-03] MEDS ORDERED: Lidocaine 1% INJ* 10 MG/ML 30 ML SDV ONE (06:57)
[2019-02-03] MEDS ORDERED: Bupivacaine 0.5% W/EPI SDV* 30 ML VIAL ONE (06:57)
[2019-02-03] MEDS ORDERED: Bacitracin OINTMENT* 0.5% 0.5 oz TUBE ONE (06:59)
[2019-02-03] MEDS ORDERED: Midazolam* 1 MG/ML 5 ML VIAL (5 MG) ONE (07:08)
[2019-02-03] MEDS ORDERED: fentaNYL* 50 MCG/ML 2 ML VIAL (100 MCG VIAL) ONE (07:08)
[2019-02-03] MEDS ORDERED: Ketorolac INJ* 30 MG/ML 1 ML VIAL IV PRN (07:29)
[2019-02-03] MEDS ORDERED: Naloxone* 0.4 MG/ML 1 ML VIAL IV PRN (07:29)
[2019-02-03] MEDS ORDERED: HYDROcodone/ACETAMIN 5-325 MG* 1 TAB PO PRN (07:29)
[2019-02-03] MEDS ORDERED: oxyCODONE/Acetamin 5/325 MG* TAB PO PRN (07:29)
[2019-02-03] MEDS ORDERED: DiMENhydriNATE IV* 50 MG/ML VIAL IV PUSH PRN (07:29)
[2019-02-03] MEDS ORDERED: fentaNYL* 50 MCG/ML 2 ML VIAL (100 MCG VIAL) IV PRN (07:29)
[2019-02-03] MEDS ORDERED: Propofol* 10 MG/ML 20 ML BTL ONE (07:36)
[2019-02-03] MEDS ORDERED: Lidocaine 2% PF * 5 ML VIAL ONE (07:37)
[2019-02-03] MEDS ORDERED: Phenylephrine 40 MCG/ML SYRINGE ONE (08:21)
--- NOTE | 2019-02-03 08:34 | OP ---
Operative Report - Blank - Operative Report Date of Operation: 02/03/19 Note: Brief Operative Note Preop Dx: umbilical hernia Postop Dx: same Procedure: open repair umbilical hernia w/ mesh Anesthesia: general (LMA) w/ local Surgeon: [employer] Specialist: YUMIKO Sarabia Fluids: 1000 ml RL EBL: < 10 ml Specimen: none Drains: none Findings: dictated
[2019-02-03 09:20] VITALS: BP 106/78
--- NOTE | 2019-02-03 19:54 | OP ---
OPERATIVE REPORT: DATE OF OPERATION: 02/03/19 DATE OF : 68 SURGEON: Jerardo Chatman MD. [employer] COORDINATOR: YUMIKO Kent. ANESTHESIOLOGIST: Dr. Aggarwal. ANESTHESIA: General anesthesia with LMA. PRE-OP DIAGNOSIS: Umbilical hernia. POST-OP DIAGNOSIS: Umbilical hernia. OPERATIVE PROCEDURE: Open umbilical hernia repair with mesh. FLUIDS: 1 L. ESTIMATED BLOOD LOSS: Minimal blood loss. SPECIMENS: None. DRAINS: None. DESCRIPTION OF PROCEDURE: The patient was identified in the preoperative area, brought to the OR, pl aced on the operating table in the supine position. Preoperative antibiotics were given. Sequential devices were placed on bilateral lower extremities. Gentle sedation was given. The patient's abdome n was prepped and draped in standard surgical fashion and a time-out was performed. The patient could not tolerate injection of lidocaine along the proposed incision site and at this po int, it was converted to general anesthesia with LMA. This allowed us to inject lidocaine along the proposed incision infraumbilical. This was deepened down to the anterior fascia inferiorly and later ally. The umbilical skin was then isolated around the Lackey drain and sharply dissected off of the hernia sac. Hernia sac was entered and omentum identified. This was not ischemic and it was lysed off of the hernia sac itself and allowed to be placed back into the abdomen. The defect was approxim ately 1 cm and we opened up a 4.3 cm ventral mesh and placed it into the defect. I made a pocket und erneath the anterior fascia to encompass this. This was placed and allowed to unfurl and sutured inf eriorly and superiorly with 0 Vicryl stitch. We then utilized the U stitch to reapproximate lateral to medial at the defect itself after making flaps on the left and right sides laterally. This made f or a nice closure. No mesh was exposed. We irrigated and then tacked the umbilicus down with 2-0 Vi cryl and the skin incision was closed in a standard fashion. Sterile dressing was applied. The raúl ent tolerated the procedure well. [id number]/[facility] [place] #: [id number]
== END 2019-02-03 15:21 | disposition home or self-care (01) ==
LOC: OR 05:32
PROVIDERS: ATTEND Surgery
DX: K42.9 Umbilical hernia without obstruction or gangrene (principal); I25.10 Atherosclerotic heart disease of native coronary artery without angina pectoris; I25.2 Old myocardial infarction; I10 Essential (primary) hypertension; E78.5 Hyperlipidemia, unspecified; Z95.5 Presence of coronary angioplasty implant and graft; Z87.891 Personal history of nicotine dependence
CPT/HCPCS: A9270-GY; C1781; J0690; J1100; J2250; J2704; J3010

== ENCOUNTER 2019-09-13 16:39 | Emergency (ER) | payer BC ==
[2019-09-13 17:41] VITALS: BP 146/92
[2019-09-13] MEDS ORDERED: Albuterol/Ipratropium NEB.SOL* Albuterol 2.5 MG/Ipratropium 0.5 MG 3 ML INH ONE (17:46)
[2019-09-13] MEDS ORDERED: Albuterol HFA INHALER* 8 gm MDI INH ONE (18:23)
--- NOTE | 2019-09-19 08:21 | UC ---
Respiratory Complaint HPI - HPI Summary HPI Summary: 49-year-old male who has had cough and cold symptoms for approximate 1 month and now coughing up yellowish green sputum. He also has postnasal drainage with sinus pressure worsening over the past few days. - History of Current Complaint Chief Complaint: UCRespiratory Stated Complaint: COUGH Time Seen by Provider: 09/13/19 17:33 Hx Obtained From: Patient Onset/Duration: Gradual Onset Timing: Constant Severity Initially: Mild Severity Currently: Mild Pain Intensity: 4 Pain Scale Used: 0-10 Numeric Character: Cough: Productive - Productive cough of yellowish-green sputum. Alleviating Factors: Nothing Associated Signs And Symptoms: Positive: Wheezing, URI, Nasal Congestion, Sinus Discomfort - Allergies/Home Medications Allergies/Adverse Reactions: Allergies Allergy/AdvReac Type Severity Reaction Status Date / Time amiodarone Allergy Mild itchy Verified 09/13/19 17:28 Meds that effect the QT Allergy Unknown Uncoded 09/13/19 17:28 Interval Reaction Details ssri meds Allergy Unknown Uncoded 09/13/19 17:28 Reaction Details PMH/Surg Hx/FS Hx/Imm Hx Previously Healthy: Yes Cardiovascular History: Hypertension - Surgical History Surgical History: Yes Surgery Procedure, Year, and Place: LAD STENT 09/28. Defibrillator. VASCECTOMY 20 YEARS AGO - Family History Known Family History: Positive: Non-Contributory Negative: Blood Disorder - Social History Alcohol Use: Occasionally Substance Use Type: Marijuana Substance Use Comment - Amount & Last Used: daily Smoking Status (MU): Former Smoker Type: Cigarettes Have You Smoked in the Last Year: No When Did the Patient Quit Smoking/Using Tobacco: 2013 Household Exposure Type: Cigarettes - Immunization History Most Recent Influenza Vaccination: never Most Recent Tetanus Shot: within 10 years Most Recent Pneumonia Vaccination: None Review of Systems All Other Systems Reviewed And Are Negative: Yes ENT: Positive: Nasal Discharge, Sinus Congestion, Sinus Pain/Tenderness Respiratory: Positive: Cough - Productive cough of yellowish-green sputum. Is Patient Immunocompromised?: No Physical Exam Triage Information Reviewed: Yes Appearance: Well-Appearing, No Pain Distress, Well-Nourished Vital Signs: Initial Vital Signs Temp 98.5 F 09/13/19 17:35 Pulse 91 09/13/19 17:35 Resp 18 09/13/19 17:35 BP 146/92 09/13/19 17:35 Pulse Ox 98 09/13/19 17:35 Vital Signs Reviewed: Yes Eyes: Positive: Conjunctiva Clear ENT: Positive: Pharynx normal - Yellow purulent postnasal drainage., Nasal congestion, Nasal drainage - Yellowish-green purulent nasal coryza., TMs normal , Sinus tenderness - Tenderness on palpation maxillary sinuses bilaterally., Uvula midline Neck: Positive: Supple, Nontender, No Lymphadenopathy Respiratory: Positive: No respiratory distress, No accessory muscle use, Rhonchi - Scattered rhonchi and wheezing with forced expiration., Wheezing Cardiovascular: Positive: RRR, No Murmur, Pulses Normal, Brisk Capillary Refill Musculoskeletal Exam: Normal Neurological Exam: Normal Psychological Exam: Normal Skin Exam: Normal Respiratory Course/Dx - Course Course Of Treatment: Patient Name: SHARON HOWARD Medical Record#: [id number] Ordering Physician: Jia Lopez CLERICAL ADVISER Acct.#: [id number] : 1970 Age: 49 Sex: M Location: [facility] Exam Date: 09/13/191745 ADM Status: [facility] ER Order Information: CHEST PA & LAT 2 VWS Accession Number: [id number] CPT: 79766 INDICATION: Cough COMPARISON: December 12, 2018 chest radiograph Chest x-ray: FINDINGS: There is a subcentimeter nodular density in the right lower lung zone. The lungs are clear. There is no pleural effusion. The cardiomediastinal silhouette is within normal limits. A left chest wall AICD is in place. The upper abdominal contents are normal. Osseous structures are unremarkable. IMPRESSION: 1. No acute cardiopulmonary process by radiograph. 2. There is a subcentimeter nodular density in the right lower lung zone ( chronicity uncertain but unchanged from December 12, 2018). Depending on patient's risk factors, chest CT could be considered. R2 1 of 2 Patient is comfortable here. He was given an albuterol inhaler with an AeroChamber and taught how to use at by the nursing staff. - Differential Dx/Diagnosis Provider Diagnosis: Bronchitis, Sinusitis Discharge ED - Sign-Out/Discharge Documenting (check all that apply): Patient Departure All imaging exams completed and their final reports reviewed: Yes - Discharge Plan Condition: Fair Disposition: HOME Prescriptions: DOXYcycline CAP(*) [DOXYcycline 100MG CAP(*)] 100 mg PO BID 10 Days #20 cap Patient Education Materials: Sinusitis (ED), Acute Bronchitis (ED) Referrals: Mau Recinos MD [Primary Care Provider] - Additional Instructions: Increase fluids, use your albuterol inhaler 2 puffs every 4-6 hours as needed for wheezing or tight cough. No dairy products, antacids or multivitamins 2 hours before you take the doxycycline and 2 hours after you take it however take it with food. Definite follow-up with your primary care provider if no improvement in 3 or 4 days. Go to the emergency room if you develop any worsening symptoms. - Billing Disposition and Condition Condition: FAIR Disposition: Home
== END 2019-09-13 18:37 | disposition home or self-care (01) ==
LOC: UCCORT 16:39
DX: J40 Bronchitis, not specified as acute or chronic (principal); J32.9 Chronic sinusitis, unspecified; I10 Essential (primary) hypertension; Z95.5 Presence of coronary angioplasty implant and graft; Z95.810 Presence of automatic (implantable) cardiac defibrillator; Z88.8 Allergy status to other drugs, medicaments and biological substances; Z87.891 Personal history of nicotine dependence
CPT/HCPCS: 71046; 99213; A9270-GY; G0463

== ENCOUNTER 2023-10-02 07:37 | Observation (INO) ==
[2023-10-02 08:05] LABS: ABS Eosinophils 0.2 10^3/uL (0.0-0.5); ABS Lymphocytes 2.3 10^3/uL (1.0-4.8); ABS Monocytes 0.7 10^3/uL (0.0-1.1); ABS Neutrophils 5.3 10^3/uL (1.5-7.6); ABS Nucleated RBC 0.01 10^3/ul; Eosinophil % 2.4 %; Hematocrit 47.3 % (38-53); Hemoglobin 16.4 g/dL (13.2-16.3); Lymphocyte % 27.3 %; Mean Corpuscular Hemoglobin 29.4 pg (27-33); Mean Corpuscular Hgb Conc 34.7 g/dL (31-36); Mean Corpuscular Volume 84.9 fL (80-97); Mean Platelet Volume 7.8 fL (7.5-11.2); Nucleated Red Blood Cells % 0.1 %/100WBC (0.0-0.8); Platelet Count 259 10^3/uL (150-450); Red Blood Count 5.58 10^6/uL (4.06-5.63); Red Cell Distribution Width 13.7 % (12-17); White Blood Count 8.6 10^3/uL (3.6-10.2)
[2023-10-02 08:24] LABS: Albumin 4.6 g/dL (3.2-5.2); Albumin/Globulin Ratio 1.6 (1-3); Calcium 9.9 mg/dL (8.6-10.3); Creatinine, Serum 1.01 mg/dL (0.67-1.17); Globulin 2.9 g/dL (2-4); Potassium 4.3 mmol/L (3.5-5.0); Total Bilirubin 0.7 mg/dL (0.2-1.0); Total Protein 7.5 g/dL (6.4-8.9); eGFR CKD-EPI 88.4 (>60)
[2023-10-02 08:36] LABS: Rapid COVID-19 Molecular Undetected (Undetected)
[2023-10-02 08:50] LABS: INR 0.96 (0.83-1.13)
[2023-10-02 09:03] LABS: Influenza A Molecular Negative (Negative); Influenza B Molecular Negative (Negative)
[2023-10-02 09:24] LABS: CRP High Sensitivity 1.29 mg/L (<2.00)
[2023-10-02 10:01] LABS: PSA Screen Ultra Sensitive 1.206 ng/mL (0-4.000)
[2023-10-02 10:05] LABS: TSH Ultra Thyroid Stim Horm 0.91 mcIU/mL (0.34-5.60)
[2023-10-02 11:31] LABS: High Sensitivity Troponin 3 Hr 4 pg/mL (<20)
[2023-10-02 14:28] LABS: Magnesium 2.1 mg/dL (1.9-2.7)
[2023-10-03 06:21] LABS: Calcium 9.4 mg/dL (8.6-10.3); Creatinine, Serum 0.98 mg/dL (0.67-1.17); eGFR CKD-EPI 91.6 (>60)
[2023-10-03 06:24] LABS: ABS Eosinophils 0.2 10^3/uL (0.0-0.5); ABS Lymphocytes 2.6 10^3/uL (1.0-4.8); ABS Monocytes 0.8 10^3/uL (0.0-1.1); ABS Neutrophils 4.2 10^3/uL (1.5-7.6); ABS Nucleated RBC 0.01 10^3/ul; Eosinophil % 2.7 %; Hematocrit 48.7 % (38-53); Hemoglobin 16.3 g/dL (13.2-16.3); Lymphocyte % 32.9 %; Mean Corpuscular Hemoglobin 29.1 pg (27-33); Mean Corpuscular Hgb Conc 33.6 g/dL (31-36); Mean Corpuscular Volume 86.7 fL (80-97); Nucleated Red Blood Cells % 0.1 %/100WBC (0.0-0.8); Platelet Count 239 10^3/uL (150-450); Red Blood Count 5.61 10^6/uL (4.06-5.63); Red Cell Distribution Width 14.1 % (12-17); White Blood Count 7.8 10^3/uL (3.6-10.2)
[2023-10-03] MEDS ORDERED: Sulfur Hexaflouride MICROSPHR 25 MG VIAL ONE (09:01)
[2023-10-03] MEDS ORDERED: Aminophylline 25 MG/ML VIAL ONE (10:57)
[2023-10-03] MEDS ORDERED: Regadenoson 0.4 MG/5 ML SYRINGE ONE (10:57)
[2023-10-03 14:25] VITALS: BP 150/92
== END 2023-10-03 17:00 | disposition left against medical advice (07) ==
LOC: ED 07:37 → EDHOLD 07:37 → MED 15:09
PROVIDERS: ADMIT Student in an Organized Health Care Education/Training Program; ATTEND Internal Medicine

== ENCOUNTER 2023-12-24 07:55 | Observation (INO) ==
[2023-12-24 08:33] LABS: ABS Basophils 0.1 10^3/uL (0.0-0.1); ABS Eosinophils 0.2 10^3/uL (0.0-0.5); ABS Lymphocytes 2.2 10^3/uL (1.0-4.8); ABS Monocytes 0.7 10^3/uL (0.0-1.1); ABS Neutrophils 4.8 10^3/uL (1.5-7.6); ABS Nucleated RBC 0.01 10^3/ul; Eosinophil % 2.2 %; Hematocrit 44.1 % (38-53); Hemoglobin 14.8 g/dL (13.2-16.3); Lymphocyte % 27.8 %; Mean Corpuscular Hemoglobin 28.7 pg (27-33); Mean Corpuscular Hgb Conc 33.7 g/dL (31-36); Mean Corpuscular Volume 85.3 fL (80-97); Mean Platelet Volume 7.9 fL (7.5-11.2); Nucleated Red Blood Cells % 0.1 %/100WBC (0.0-0.8); Platelet Count 224 10^3/uL (150-450); Red Blood Count 5.17 10^6/uL (4.06-5.63); Red Cell Distribution Width 14.2 % (12-17); White Blood Count 7.9 10^3/uL (3.6-10.2)
[2023-12-24 08:42] LABS: Activated Partial Thrombo Time 25.6 seconds (26.0-38.0); INR 0.95 (0.83-1.13)
[2023-12-24 08:54] LABS: Albumin 4.2 g/dL (3.2-5.2); Albumin/Globulin Ratio 1.9 (1-3); Calcium 9.3 mg/dL (8.6-10.3); Creatinine, Serum 0.94 mg/dL (0.67-1.17); Globulin 2.2 g/dL (2-4); Potassium 4.3 mmol/L (3.5-5.0); Total Bilirubin 0.7 mg/dL (0.2-1.0); Total Protein 6.4 g/dL (6.4-8.9); eGFR CKD-EPI 96.3 (>60)
[2023-12-24 09:09] LABS: TSH Ultra Thyroid Stim Horm 1.52 mcIU/mL (0.34-5.60)
[2023-12-24] MEDS: NS 0.9% 1000 ml BAG 1,000 ML IV ONE (09:49)
[2023-12-24 10:01] LABS: High Sensitivity Troponin 1 Hr 4 pg/mL (<20)
[2023-12-24] MEDS ORDERED: Senna TAB 8.6 mg TAB PO PRN (11:24)
[2023-12-24] MEDS ORDERED: Heparin 5000 UNITS/ML 1 mL VIAL SUBCUT SCH (14:00)
[2023-12-24 20:11] VITALS: BP 123/86
== END 2023-12-24 17:55 | disposition home or self-care (01) ==
LOC: ED 07:55 → EDHOLD 07:55 → MEDTELE 13:43
PROVIDERS: ADMIT Internal Medicine; ATTEND Internal Medicine